=== PATIENT | female | born 1955 | race Caucasian/White ===

== ENCOUNTER 2016-07-07 13:30 | Outpatient (RCR) | payer OTHER ==
[~2016-07-07 13:30] MED LIST: ALLEGRA180 MG PO; ALTACE 10MG TAB10 MG PO; ALTACE5 MG PO; AMBIEN 5MG TABLE5 MG PO; ATIVAN 0.50.5 MG/TAB PO; BONIVA150 MG PO; CARBOPLATIN; CITRUS CALCIUM200 MG PO; COZAAR 50MG50 MG/TAB PO; EFFEXOR; EFFEXOR 50M50 MG/TAB PO; EFFEXOR 75M75 MG/TAB PO; HERCEPTIN; LEVOXYL0.05 MG PO; SEROQUEL; SINGULAIR 110 MG/TAB PO; TAXOTERE
== END 2016-07-08 08:22 | disposition home or self-care (01) ==
LOC: WSOT 13:30
DX: G56.02 Carpal tunnel syndrome, left upper limb (principal)

== ENCOUNTER → 2017-01-24 | Outpatient (CLI) | payer OTHER | LOC: MC.RAD 16:35 | DX: Z12.31 Encounter for screening mammogram for malignant neoplasm of breast (principal) ==

== ENCOUNTER → 2018-02-26 | Outpatient (CLI) | payer BC, OTHER | LOC: MC.RAD 06:54 | DX: Z12.31 Encounter for screening mammogram for malignant neoplasm of breast (principal) ==

== ENCOUNTER → 2019-02-28 | Outpatient (CLI) | payer BC, OTHER | LOC: MC.RAD 07:08 | DX: Z12.31 Encounter for screening mammogram for malignant neoplasm of breast (principal) ==

== ENCOUNTER → 2019-09-06 | Outpatient (CLI) | payer BC, OTHER | LOC: MC.RAD 13:33 | DX: R22.31 Localized swelling, mass and lump, right upper limb (principal) ==

== ENCOUNTER → 2020-03-02 | Outpatient (CLI) | payer BC, OTHER | LOC: MC.RAD 07:08 | DX: N64.89 Other specified disorders of breast (principal) ==

== ENCOUNTER → 2020-03-05 | Outpatient (CLI) | payer BC, OTHER | LOC: MC.RAD 10:50 | DX: N63.22 Unspecified lump in the left breast, upper inner quadrant (principal); N64.89 Other specified disorders of breast ==

== ENCOUNTER → 2020-03-09 | Outpatient (CLI) | payer BC, OTHER | LOC: MC.RAD 06:52 | DX: N63.20 Unspecified lump in the left breast, unspecified quadrant (principal); N64.89 Other specified disorders of breast ==

== ENCOUNTER 2020-07-26 17:47 | Emergency (ER) | payer BC, OTHER ==
[2008-05-04 14:55] VITALS: BP 101/55
[~2020-07-26] VITALS: Ht 165.1 cm; Wt 80.5 kg
[2020-07-26] MEDS ORDERED: CRUTCHES MC (20:21)
[2020-07-26 20:55] VITALS: BP 126/86; PULSE 74; TEMP 97.6
== END 2020-07-26 20:55 | disposition home or self-care (01) ==
LOC: COL.ER 17:47
DX: S82.402A Unspecified fracture of shaft of left fibula, initial encounter for closed fracture (principal); S92.352A Displaced fracture of fifth metatarsal bone, left foot, initial encounter for closed fracture; I10 Essential (primary) hypertension; Z88.8 Allergy status to other drugs, medicaments and biological substances; Z88.2 Allergy status to sulfonamides; W10.9XXA Fall (on) (from) unspecified stairs and steps, initial encounter

== ENCOUNTER → 2021-02-25 | Outpatient (CLI) | payer MEDICARE, BC, OTHER ==
[~2021-02-25] MED LIST changes: +CRUTCHES MC
== END ==
LOC: MC.RAD 06:55
DX: Z12.31 Encounter for screening mammogram for malignant neoplasm of breast (principal); N60.19 Diffuse cystic mastopathy of unspecified breast

== ENCOUNTER → 2022-03-01 | Outpatient (CLI) | payer MEDICARE, OTHER | LOC: MC.RAD 10:28 | DX: Z12.31 Encounter for screening mammogram for malignant neoplasm of breast (principal) ==

== ENCOUNTER → 2024-04-05 | Outpatient (CLI) | payer MEDICARE | LOC: MC.RAD 07:15 | DX: Z12.31 Encounter for screening mammogram for malignant neoplasm of breast (principal) ==